=== PATIENT | female | born 1945 | race Caucasian/White ===

== ENCOUNTER 2018-03-12 17:42 | Inpatient (IN) | payer MEDICARE ==
[~2018-03-12] VITALS: Ht 5619.3 cm; Wt 96.2 kg
[2018-03-12 18:02] LABS: BASOPHILS # (AUTO) 0.1 X10'3 (0-0.2); BASOPHILS % (AUTO) 0.5 % (0-1); EOSINOPHILS # (AUTO) 0.3 X10'3 (0-0.9); EOSINOPHILS % (AUTO) 2.8 % (0-6); HEMATOCRIT 45.5 % (35.0-45.0); HEMOGLOBIN 15.2 g/dl (12.0-16.0); LYMPHOCYTES # (AUTO) 3.6 X10'3 (1.1-4.8); LYMPHOCYTES % (AUTO) 35.6 % (21-51); MEAN CORPUSCULAR HEMOGLOBIN 30.7 PG (27.0-31.0); MEAN CORPUSCULAR HGB CONC 33.5 % (33.0-36.5); MEAN CORPUSCULAR VOLUME 91.8 FL (78-98); MEAN PLATELET VOLUME 8.8 FL (7.4-10.4); MONOCYTES # (AUTO) 0.6 X10'3 (0-0.9); MONOCYTES % (AUTO) 5.7 % (2-12); NEUTROPHILS # (AUTO) 5.6 X10'3 (1.8-7.7); NEUTROPHILS % (AUTO) 55.4 % (42-75); PLATELET COUNT 211 X10'3 (140-440); RED BLOOD COUNT 4.96 X10'6 (4.20-5.60); WHITE BLOOD COUNT 10.1 X10'3 (4.5-11.0)
[2018-03-12 18:12] LABS: PARTIAL THROMBOPLASTIN TIME 25 SECONDS (22-32); PROTHROMBIN TIME 10.7 SECONDS (9.0-12.0)
[2018-03-12 18:19] LABS: ALANINE AMINOTRANSFERASE 36 U/L (12-78); ALBUMIN/GLOBULIN RATIO 1.1 (1.1-1.5); ALKALINE PHOSPHATASE 100 IU/L (46-116); ANION GAP 8 (8-16); ASPARTATE AMINO TRANSFERASE 24 U/L (10-37); BILIRUBIN,TOTAL 0.6 MG/DL (0.1-1.0); BLOOD UREA NITROGEN 22 MG/DL (7-18); BUN/CREATININE RATIO 27.5 (6.6-38.0); CALCIUM 9.4 MG/DL (8.5-10.1); CHLORIDE 106 MMOL/L (99-107); GLUCOSE 112 MG/DL (70-104); POTASSIUM 3.9 MMOL/L (3.5-5.1); SODIUM 144 MMOL/L (135-145); TOTAL CARBON DIOXIDE 30.2 MMOL/L (24-32); TOTAL PROTEIN 7.5 G/DL (6.4-8.2); TROPONIN I < 0.04 NG/ML (0.0-0.05); eGFR 71 ML/MIN
[2018-03-12] MEDS ORDERED: diltiazem 5mg/ml 5ml inj. IV ONE (20:30)
[2018-03-12] MEDS ORDERED: verapamil 2.5 mg/ml inj IV ONE (20:35)
[2018-03-12] MEDS ORDERED: acetaminophen 325mg tablet PO ONE (21:00)
[2018-03-12] MEDS ORDERED: NO HOME MEDS (21:33)
[2018-03-12] MEDS ORDERED: predniSONE 20 mg tablet PO ONE (21:55)
[2018-03-13] MEDS ORDERED: normal saline 1000ml 1,000 ML IV SCH (01:08)
[2018-03-13] MEDS ORDERED: morphine 4 MG/ML inj SYRINge IV PRN ×2 (01:10)
[2018-03-13] MEDS ORDERED: HYDROmorphone inj. 0.5 MG/0.5 ML DISP.SYRIN IV PRN ×2 (01:10)
[2018-03-13] MEDS ORDERED: metoclopramide 5 mg/ml inj IV PRN (01:10)
[2018-03-13] MEDS ORDERED: diphenhydrAMINE 25mg capsule PO PRN (01:10)
[2018-03-13] MEDS ORDERED: ondansetron/PF 4mg/2ml inj IV PRN (01:10)
[2018-03-13] MEDS ORDERED: mag hydrox/Alum hydrox/simeth 30ml oral suspension PO PRN (01:10)
[2018-03-13] MEDS ORDERED: acetaminophen 650mg rectal suppository RC PRN (01:10)
[2018-03-13] MEDS ORDERED: magnesium hydroxide 30ml (MOM) UD suspension PO PRN (01:10)
[2018-03-13] MEDS ORDERED: diphenhydrAMINE 50 mg/ml inj IV PRN (01:10)
[2018-03-13] MEDS ORDERED: HYDROcodone/acetaminophen 10/325mg tab PO PRN (01:10)
[2018-03-13] MEDS ORDERED: acetaminophen 325mg tablet PO PRN (01:10)
[2018-03-13] MEDS ORDERED: HYDROcodone/acetaminophen 5mg/325mg tablet PO PRN (01:10)
[2018-03-13 02:02] LABS: HEMOGLOBIN A1C 6.1 % (4.5-6.2)
[2018-03-13 02:09] LABS: MAGNESIUM 2.2 MG/DL (1.5-2.4); PHOSPHORUS 2.9 MG/DL (2.3-4.5)
[2018-03-13] MEDS: enoxaparin 100mg/ml syringe SUBCUT SCH ×3 (07:14→21:12)
[2018-03-13] MEDS: metoprolol tartrate 50mg tablet PO SCH ×2 (07:15→19:56)
[2018-03-13] MEDS: valacyclovir 500mg tablet PO SCH ×2 (07:15→19:56)
[2018-03-13] MEDS: predniSONE 20 mg tablet PO SCH (07:15)
[2018-03-13] MEDS: docusate sod 100mg capsule PO SCH ×2 (07:15→19:56)
[2018-03-13] MEDS: pantoprazole 40mg Tablet.DR PO SCH (07:16)
[2018-03-13 07:41] LABS: CLARITY,URINE CLEAR (Clear); COLOR,URINE YELLOW (Yellow); GLUCOSE, URINE NEGATIVE (Neg); KETONES,URINE NEGATIVE (Neg); LEUKOCYTE ESTERASE ,URINE NEGATIVE (Neg); NITRITES, URINE NEGATIVE (Neg); OCCULT BLOOD,URINE NEGATIVE (Neg); PROTEIN,URINE NEGATIVE (Neg); UROBILINOGEN,URINE 0.2 E.U/dL (0.2-1.0)
[2018-03-13 07:52] LABS: UA COLLECTION TYPE CLN CATCH MIDSTREAM
[2018-03-13 10:00] VITALS: BP 161/98
[2018-03-13] MEDS ORDERED: LORazepam 2 mg/ml vial IV ONE (15:15)
[2018-03-13] MEDS ORDERED: polyvinyl alcohol ophthalmic drops 15ml bottle LEFTEYE PRN (17:25)
[2018-03-13 18:00] VITALS: BP 157/76
[2018-03-13] MEDS ORDERED: temazepam 15mg capsule PO PRN (21:00)
[2018-03-13 22:00] VITALS: BP 130/59
[2018-03-14 02:00] VITALS: BP 144/74
[2018-03-14 05:40] LABS: BASOPHILS % (AUTO) 0.2 % (0-1); EOSINOPHILS # (AUTO) 0.2 X10'3 (0-0.9); EOSINOPHILS % (AUTO) 1.9 % (0-6); HEMATOCRIT 41.8 % (35.0-45.0); HEMOGLOBIN 14.6 g/dl (12.0-16.0); LYMPHOCYTES # (AUTO) 3.3 X10'3 (1.1-4.8); LYMPHOCYTES % (AUTO) 25.7 % (21-51); MEAN CORPUSCULAR HEMOGLOBIN 31.4 PG (27.0-31.0); MEAN CORPUSCULAR HGB CONC 34.9 % (33.0-36.5); MEAN CORPUSCULAR VOLUME 89.9 FL (78-98); MEAN PLATELET VOLUME 9.2 FL (7.4-10.4); MONOCYTES # (AUTO) 0.8 X10'3 (0-0.9); MONOCYTES % (AUTO) 6.2 % (2-12); NEUTROPHILS # (AUTO) 8.5 X10'3 (1.8-7.7); PLATELET COUNT 174 X10'3 (140-440); RED BLOOD COUNT 4.65 X10'6 (4.20-5.60); RED CELL DISTRIBUTION WIDTH 14.1 % (11.5-14.5); WHITE BLOOD COUNT 12.9 X10'3 (4.5-11.0)
[2018-03-14 06:07] LABS: ALANINE AMINOTRANSFERASE 27 U/L (12-78); ALBUMIN 3.3 G/DL (3.4-5.0); ALKALINE PHOSPHATASE 77 IU/L (46-116); ANION GAP 7 (8-16); ASPARTATE AMINO TRANSFERASE 13 U/L (10-37); BILIRUBIN,TOTAL 0.5 MG/DL (0.1-1.0); BLOOD UREA NITROGEN 22 MG/DL (7-18); BUN/CREATININE RATIO 27.5 (6.6-38.0); CALCIUM 9.1 MG/DL (8.5-10.1); CHLORIDE 108 MMOL/L (99-107); CHOL/HDL RATIO 3.7 (0.00-4.99); CHOLESTEROL 154 MG/DL (0-200); GLUCOSE 112 MG/DL (70-104); HDL CHOLESTEROL 42 MG/DL (35-60); LDL CHOLESTEROL 88 MG/DL (50-100); POTASSIUM 3.4 MMOL/L (3.5-5.1); SODIUM 144 MMOL/L (135-145); TOTAL PROTEIN 6.6 G/DL (6.4-8.2); TRIGLYCERIDES 129 MG/DL (20-135); eGFR 71 ML/MIN
[2018-03-14 07:30] VITALS: BP 130/72
[2018-03-14] MEDS ORDERED: enoxaparin 100mg/ml syringe SUBCUT SCH (08:00)
[2018-03-14] MEDS ORDERED: aspirin 81mg tab.chew PO SCH (08:30)
[2018-03-14] MEDS: valacyclovir 500mg tablet PO SCH (08:42)
[2018-03-14] MEDS: predniSONE 20 mg tablet PO SCH (08:42)
[2018-03-14] MEDS: pantoprazole 40mg Tablet.DR PO SCH (08:43)
[2018-03-14] MEDS: metoprolol tartrate 50mg tablet PO SCH (08:43)
[2018-03-14] MEDS: docusate sod 100mg capsule PO SCH (08:43)
[2018-03-14 10:00] VITALS: BP 153/94
[2018-03-14 14:00] VITALS: BP 144/82
[2018-03-14] MEDS ORDERED: VALA500T37 PO (15:53)
[2018-03-14] MEDS ORDERED: ASPI-1265 PO (15:53)
[2018-03-14] MEDS ORDERED: RIVA20TA PO (15:53)
[2018-03-14] MEDS ORDERED: METO50TA16 PO (15:53)
[2018-03-14] MEDS ORDERED: PRED20TA PO (15:53)
== END 2018-03-14 17:32 | disposition home or self-care (01) | DRG 74 ==
LOC: ER 17:43 → ED HOLD 03-13 01:08 → ORTHO 4S 03-13 07:00
PROVIDERS: ADMIT Family Medicine; ATTEND Family Medicine
DX: G51.0 Bell's palsy (principal); I47.2 Ventricular tachycardia; D68.59 Other primary thrombophilia; I48.91 Unspecified atrial fibrillation; E66.9 Obesity, unspecified; E87.6 Hypokalemia; I10 Essential (primary) hypertension; R73.03 Prediabetes; R73.9 Hyperglycemia, unspecified; Z68.33 Body mass index [BMI] 33.0-33.9, adult
CPT/HCPCS: 36415; 70450; 70544; 70551; 71045; 80053; 80061; 81003; 82948; 83036; 83735; 83880; 84100; 84443; 84484; 85025; 85610; 85730; 86618; 87070; 93005; 93306; 93880; 96374; 99285; J1650; J2060; J3490; J7030; J7512